=== PATIENT | female | born 1975 | race Caucasian/White ===

== ENCOUNTER 2017-08-10 09:24 | Emergency (ER) | payer OTHER ==
[2017-08-10 09:24] VITALS: BMI 25.4
[2017-08-10 09:28] VITALS: BP 103/66; PULSE 75; RESP 16; TEMP 98.1; O2SAT 100
[2017-08-10] MEDS ORDERED: Naproxen 500 MG TAB PO ONE ×2 (10:45→11:00)
--- NOTE | 2017-08-10 12:41 | ED PDOC ---
Lower Extremity Pain/Injury Time Seen by Provider: 08/10/17 10:28 Chief Complaint (Nursing): Lower Extremity Problem/Injury Chief Complaint (Provider): right foot pain History Per: Patient History/Exam Limitations: no limitations Onset/Duration Of Symptoms: Days (1 week) Additional Complaint(s): 41 year old female presents to the ED complaining of right foot pain onset 1 week ago. Denies falling, injury, deformity, swelling, or redness. Reports of localized pain, approximately about an area of fingertip on dorsal surface. Also states of going to the clinic and being diagnosed with diabetes but she not to followed-up. PMD: No family Provider Past Medical History Reviewed: Historical Data, Nursing Documentation, Vital Signs Vital Signs: Last Vital Signs Temp 98.1 F 08/10/17 09:27 Pulse 75 08/10/17 09:27 Resp 16 08/10/17 09:27 BP 103/66 08/10/17 09:27 Pulse Ox 100 08/10/17 09:27 - Medical History PMH: Diabetes (type 2) - Surgical History Surgical History: (x1) - Family History Family History: States: Unknown Family Hx - Social History Current smoker - smoking cessation education provided: No Alcohol: None Drugs: Denies - Home Medications Home Medications: Ambulatory Orders Medication Instructions Recorded Docusate [Colace] 100 mg PO BID #20 cap 08/05/15 Hard Fat/Phenylephrine [place] 1 sup RC DAILY #7 sup 08/05/15 [Anusol Suppository] Psyllium Husk [Metamucil] 0.52 gm PO DAILY #14 capsule 08/05/15 Naproxen [Naprosyn] 500 mg PO BID PRN #20 tablet 06/10/16 RX: Penicillin VK [Pen-Vee K] 500 mg PO QID #27 tab 06/10/16 Naproxen [Naprosyn] 500 mg PO BID #20 tab 08/10/17 - Allergies Allergies/Adverse Reactions: Allergies Allergy/AdvReac Type Severity Reaction Status Date / Time No Known Allergies Allergy Verified 08/05/15 17:15 Review of Systems ROS Statement: Except As Marked, All Systems Reviewed And Found Negative Musculoskeletal: Positive for: Foot Pain (right) Physical Exam - Reviewed Nursing Documentation Reviewed: Yes Vital Signs Reviewed: Yes - Physical Exam Extremity: Positive for: Normal ROM (good range on ankle, foot, knee), Tenderness (fingertip area focal tenderness; medial aspect dorsal pedas). Negative for: Pedal Edema, Deformity, Swelling (redness) Neurologic/Psych: Positive for: Alert, Oriented (x3), Gait (steady) - ECG O2 Sat by Pulse Oximetry: 100 (RA) Pulse Ox Interpretation: Normal - Radiology X-Ray: Viewed By Me X-Ray Interpretation: No Acute Disease - Progress Re-evaluation Time: 12:30 Condition: Re-examined Medical Decision Making Medical Decision Making: Time: 1043 Initial Impression: Right foot pain r/o fracture Initial Plan: -- Test --ED urine dipstick --Glucose, POC --Naproxen 500mg --Accucheck --Right Foot 3 Views [RAD] --Reevaluation Scribe Attestation: Documented by Rd Amaro, acting as a scribe for Radha Grimaldo MD Provider Scribe Attestation: All medical record entries made by the Scribe were at my direction and personally dictated by me. I have reviewed the chart and agree that the record accurately reflects my personal performance of the history, physical exam, medical decision making, and the department course for this patient. I have also personally directed, reviewed, and agree with the discharge instructions and disposition. Disposition - Clinical Impression Clinical Impression: Foot pain, right - Patient ED Disposition Is Patient to be Admitted: No Doctor Will See Patient In The: Office Counseled Patient/Family Regarding: Diagnosis, Need For Followup, Rx Given - Disposition Referrals: [facility] [Outside] [facility] [Outside] Disposition: Routine/Home Disposition Time: 12:35 Condition: STABLE Prescriptions: Naproxen [Naprosyn] 500 mg PO BID #20 tab Instructions: Metatarsalgia (DC) Forms: [employer] ([place] Korean) Print Language: CITIZEN OF [place] - POA Present On Arrival: None
--- NOTE | 2017-08-10 15:35 | RAD ---
PROCEDURE: Right foot dated 08/10/2017 Three views of the right foot performed HISTORY: Focal pain - midfoot dorsum COMPARISON: None. FINDINGS: BONES: No evidence of acute displaced fracture nor dislocation. Osseous structures appear intact. No obvious cortical destructive changes. Small to medium-sized plantar surface calcaneal enthesophyte. JOINTS: No significant osteoarthritis SOFT TISSUES: Soft tissues appear grossly unremarkable OTHER FINDINGS: None. IMPRESSION: No evidence of acute displaced fracture nor dislocation. The small to medium-sized plantar surface calcaneal enthesophyte. If symptoms persist or worsen recommend followup radiographs in 5 -10 days as most fractures should become radiographically evident this timeframe. Alternatively, consider followup MRI.
== END 2017-08-10 13:27 | disposition home or self-care (01) ==
LOC: H.ER 09:24
DX: M79.671 Pain in right foot (principal); E11.65 Type 2 diabetes mellitus with hyperglycemia

== ENCOUNTER 2018-08-04 19:32 | Inpatient (IN) | payer MEDICAID, OTHER ==
[2018-08-04 19:32] VITALS: BMI 25.4
[2018-08-04] MEDS ORDERED: Sodium Chloride 0.9% 1,000 ML IV STA (20:15)
[2018-08-04 20:46] LABS: BASO # 0.1 K/uL (0.0-0.2); BASO % 0.8 % (0.0-2.0); EOS # 0.2 K/uL (0.0-0.7); HEMOGLOBIN 11.9 g/dL (12.0-16.0); LYMPH # 3.3 K/uL (1.0-4.3); MEAN CELL VOLUME 89.8 fl (81.0-99.0); MEAN CORPUSCULAR HGB CONC 33.4 g/dL (33.0-37.0); MEAN PLATELET VOLUME 8.6 fl (7.2-11.7); MONO # 0.6 K/uL (0.0-0.8); MONO % 8.7 % (0.0-10.0); NEUT # 2.7 K/uL (1.8-7.0); NEUT % 39.5 % (50.0-75.0); NRBC % 0.2 % (0.0-0.0); RBC 3.96 Mil/uL (3.80-5.20); RED CELL DISTRIBUTION WIDTH 12.7 % (11.5-14.5); WHITE BLOOD COUNT 6.8 K/uL (4.8-10.8)
[2018-08-04 20:50] LABS: SQUAMOUS EPITHIAL 3 /hpf (0-5); URINE BILIRUBIN NEGATIVE (NEGATIVE); URINE BLOOD NEGATIVE (NEGATIVE); URINE CLARITY SLIGHTY-CLOUDY (Clear); URINE COLOR YELLOW (YELLOW); URINE GLUCOSE (UA) NEG (NEGATIVE); URINE LEUKOCYTE ESTERASE NEG Leu/uL (Negative); URINE PROTEIN NEGATIVE (NEGATIVE); URINE UROBILINOGEN 0.2-1.0 mg/dL (0.2-1.0)
[2018-08-04 20:56] LABS: ALB/GLOB RATIO 1.3 (1.0-2.1); ALBUMIN 4.3 g/dL (3.5-5.0); ALT/SGPT 27 U/L (9-52); AST/SGOT 19 U/L (14-36); BLOOD UREA NITROGEN 19 mg/dl (7-17); CALCIUM 9.5 mg/dL (8.4-10.2); GFR NON-AFRICAN AMERICAN > 60; LIPASE 141 U/L (23-300)
--- NOTE | 2018-08-04 21:38 | ED PDOC ---
HPI: Abdomen Time Seen by Provider: 08/04/18 20:14 Chief Complaint (Nursing): Abdominal Pain Chief Complaint (Provider): Abdominal Pain History Per: Patient History/Exam Limitations: no limitations Onset/Duration Of Symptoms: Hrs (x3) Current Symptoms Are (Timing): Still Present Additional Complaint(s): 42 y/o female with a PMHx of DM presents to the ED for evaluation of abdominal pain associated with nausea and vomiting, onset three hours ago. Patient reports he is currently not taking any medications for DM. Patient notes pain is located in the RUQ radiating to the back and associated with 3 episodes of non-bloody, non-bilious vomiting and nausea. Otherwise, patient denies diarrhea. PMD: no provider Past Medical History Reviewed: Historical Data, Nursing Documentation, Vital Signs Vital Signs: Last Vital Signs Temp 99.0 F 08/04/18 19:42 Pulse 60 08/04/18 21:18 Resp 18 08/04/18 21:18 BP 137/73 08/04/18 21:18 Pulse Ox 100 08/04/18 21:18 - Medical History PMH: Diabetes (type 2) - Surgical History Surgical History: (x1) - Family History Family History: States: Unknown Family Hx - Immunization History Hx Tetanus Toxoid Vaccination: No Hx Influenza Vaccination: No Hx Pneumococcal Vaccination: No - Home Medications Home Medications: Ambulatory Orders Medication Instructions Recorded No Known Home Med 08/05/18 - Allergies Allergies/Adverse Reactions: Allergies Allergy/AdvReac Type Severity Reaction Status Date / Time No Known Allergies Allergy Verified 08/04/18 19:39 Review of Systems ROS Statement: Except As Marked, All Systems Reviewed And Found Negative Gastrointestinal: Positive for: Nausea, Vomiting, Abdominal Pain. Negative for: Diarrhea Physical Exam - Reviewed Nursing Documentation Reviewed: Yes Vital Signs Reviewed: Yes - Physical Exam Appears: Positive for: Uncomfortable Head Exam: Positive for: ATRAUMATIC, NORMOCEPHALIC Skin: Positive for: Normal Color, Warm, Dry Eye Exam: Positive for: Normal appearance, EOMI, PERRL Neck: Positive for: Normal, Painless ROM, Supple Cardiovascular/Chest: Positive for: Regular Rate, Rhythm. Negative for: Murmur Respiratory: Positive for: Normal Breath Sounds. Negative for: Respiratory Distress Gastrointestinal/Abdominal: Positive for: Tenderness (RUQ tenderness to palpation) Back: Positive for: Normal Inspection. Negative for: L CVA Tenderness, R CVA Tenderness Extremity: Positive for: Normal ROM. Negative for: Deformity Neurological/Psych: Positive for: Awake, Alert, Oriented. Negative for: Francheska r/Sensory Deficits - Laboratory Results Result Diagrams: 08/04/18 20:40 08/04/18 20:40 Lab Results: Total Bilirubin 0.2 mg/dl (0.2-1.3) 08/04/18 20:40 AST 19 U/L (14-36) 08/04/18 20:40 ALT 27 U/L (9-52) 08/04/18 20:40 Alkaline Phosphatase 84 U/L (38-126) 08/04/18 20:40 Total Protein 7.7 G/DL (6.3-8.2) 08/04/18 20:40 Albumin 4.3 g/dL (3.5-5.0) 08/04/18 20:40 Globulin 3.4 gm/dL (2.2-3.9) 08/04/18 20:40 Albumin/Globulin Ratio 1.3 (1.0-2.1) 08/04/18 20:40 Lipase 141 U/L (23-300) 08/04/18 20:40 Urine Color Yellow (YELLOW) 08/04/18 20:40 Urine Clarity Slighty-cloudy (Clear) 08/04/18 20:40 Urine pH 6.0 (5.0-8.0) 08/04/18 20:40 Ur Specific [place] 1.025 (1.003-1.030) 08/04/18 20:40 Urine Protein Negative mg/dL (NEGATIVE) 08/04/18 20:40 Urine Glucose (UA) Neg mg/dL (NEGATIVE) 08/04/18 20:40 Urine Ketones Negative mg/dL (NEGATIVE) 08/04/18 20:40 Urine Blood Negative (NEGATIVE) 08/04/18 20:40 Urine Nitrate Negative (NEGATIVE) 08/04/18 20:40 Urine Bilirubin Negative (NEGATIVE) 08/04/18 20:40 Urine Urobilinogen 0.2-1.0 mg/dL (0.2-1.0) 08/04/18 20:40 Ur Leukocyte Esterase Neg [place]/uL (Negative) 08/04/18 20:40 Urine RBC (Auto) 1 /hpf (0-3) 08/04/18 20:40 Urine Microscopic WBC < 1 /hpf (0-5) 08/04/18 20:40 Ur Squamous Epith Cells 3 /hpf (0-5) 08/04/18 20:40 - ECG O2 Sat by Pulse Oximetry: 100 (RA) Pulse Ox Interpretation: Normal Medical Decision Making Medical Decision Making: Time: 2014 Impression: 42 y/o female presenting with biliary colic Plan: -- CMP -- Lipase -- ED Urine -- ED Urine Dipstick -- ED Urine Dipstick -- CBC with Differentials -- Sodium Chloride IV 1000 mls/hr -- Toradol 30 mg IV -- Zofran Inj 4 mg IV -- Urinalysis -- US Gall Bladder 23:33 US Findings Liver Measures 14.3 cm in length. Normal echogenicity of the liver parenchyma. No mass. No intrahepatic bile duct dilatation. Gallbladder Multiple stones, 1 small at the neck possibly lodged measuring 1 x 0.9 cm, the largest stone measures 1.6 x 2.1 x 1.4 cm. Sludge. Common bile duct Measures 4.1 mm. No stones. No dilatation. Pancreas Unremarkable as visualized. No mass. No ductal dilatation. Right kidney Measures 11 x 4.3 x 4.7 cm in length. Normal echogenicity. No calculus, mass, or hydronephrosis. Aorta No aneurysmal dilatation. Measures 1.3 x 1.3 x 0.8 cm. Other Findings None. Impression 1. Multiple gallstones as described above. 2. Gallbladder sludge. 3. Consider follow up with hepatobiliary scan. 00:52 Patient is complaining of persistent pain. Given the significant number of stones in the US discussed patient case with surgical asst, Dr. Ramirez. Patient will be admitted. Diagnosis is Cholelithiasis . Scribe Attestation: Documented by Duc Lambert, acting as a scribe Cyn Ngo MD. Provider Scribe Attestation: All medical record entries made by the Scribe were at my direction and personally dictated by me. I have reviewed the chart and agree that the record accurately reflects my personal performance of the history, physical exam, medical decision making, and the department course for this patient. I have also personally directed, reviewed, and agree with the discharge instructions and disposition. Disposition - Patient ED Disposition Is Patient to be Admitted: Yes - Disposition Disposition Time: 00:52 Forms: [employer] (Yoruba)
[2018-08-05] MEDS: Lactated Ringer's 1,000 ML IV SCH ×2 (01:44→10:02)
--- NOTE | 2018-08-05 06:31 | CP.PCM.HP ---
History of Present Illness - History of Present Illness History of Present Illness: GENERAL SURGERY HISTORY AND PHYSICAL FOR DR. CARDENAS 42yo F with PMHx of DM presents to the ED with abdominal pain and vomiting. The pain began 2 hours prior to arrival and is located in the RUQ. She had associated nausea and vomited twice. Denies diarrhea. Reports that she has never had this type of pain before. Pt states that she did not eat any meal prior to the onset of pain. PMHx: DM (not on medication) Surgeries: Allergies: none Medications: none Social hx: denies etoh, tobacco abuse or illicit drug use Present on Admission - Present on Admission Any Indicators Present on Admission: No Review of Systems - Review of Systems All systems: reviewed and no additional remarkable complaints except (as per HPI) Past Patient History - Past Medical History & Family History Past Medical History?: Yes - Past Social History Smoking Status: Never Smoked - CARDIAC Hx Cardiac Disorders: No - PULMONARY Hx Respiratory Disorders: No - NEUROLOGICAL Hx Neurological Disorder: No - HEENT Hx HEENT Problems: No - RENAL Hx Chronic Kidney Disease: No - ENDOCRINE/METABOLIC Hx Diabetes Mellitus Type 2: Yes - HEMATOLOGICAL/ONCOLOGICAL Hx Blood Disorders: No - INTEGUMENTARY Hx Dermatological Problems: No - MUSCULOSKELETAL/RHEUMATOLOGICAL Hx Musculoskeletal Disorders: No Hx Falls: No - GASTROINTESTINAL Hx Gastrointestinal Disorders: Yes Other/Comment: cholelithiasis - GENITOURINARY/GYNECOLOGICAL Hx Genitourinary Disorders: No - PSYCHIATRIC Hx Psychophysiologic Disorder: No Hx Substance Use: No - SURGICAL HISTORY Hx Surgeries: Yes Hx Section: Yes (x1) - ANESTHESIA Hx Anesthesia: Yes Hx Anesthesia Reactions: No Meds Allergies/Adverse Reactions: Allergies Allergy/AdvReac Type Severity Reaction Status Date / Time No Known Allergies Allergy Verified 08/04/18 19:39 Physical Exam - Constitutional Appears: Well, Non-toxic, No Acute Distress - Head Exam Head Exam: ATRAUMATIC, NORMAL INSPECTION - Eye Exam Eye Exam: EOMI, Normal appearance - Respiratory Exam Respiratory Exam: NORMAL BREATHING PATTERN. absent: Respiratory Distress - Cardiovascular Exam Cardiovascular Exam: +S1, +S2 - GI/Abdominal Exam GI & Abdominal Exam: Soft, Tenderness (tender in RUQ). absent: Distended, Firm, Guarding, Rebound, Rigid Additional comments: + Armas sign - Neurological Exam Neurological exam: Alert, CN II-XII Intact, Oriented x3 - Psychiatric Exam Psychiatric exam: Normal Affect, Normal Mood - Skin Skin Exam: Dry, Normal Color, Warm Results - Vital Signs Recent Vital Signs: Last Vital Signs Temp 98.4 F 08/05/18 02:25 Pulse 62 08/05/18 01:55 Resp 18 08/05/18 03:39 BP 107/61 08/05/18 02:25 Pulse Ox 98 08/05/18 03:39 - Labs Result Diagrams: 08/04/18 20:40 08/04/18 20:40 Labs: Laboratory Results - last 24 hr 08/04/18 08/04/18 08/04/18 20:40 20:40 20:40 WBC 6.8 RBC 3.96 Hgb 11.9 L Hct 35.5 MCV 89.8 MCH 30.0 MCHC 33.4 RDW 12.7 Plt Count 317 MPV 8.6 Neut % (Auto) 39.5 L Lymph % (Auto) 48.0 H [place] % (Auto) 8.7 Eos % (Auto) 3.0 Baso % (Auto) 0.8 Neut # (Auto) 2.7 Lymph # (Auto) 3.3 [place] # (Auto) 0.6 Eos # (Auto) 0.2 Baso # (Auto) 0.1 Sodium 141 Potassium 3.4 L Chloride 98 Carbon Dioxide 29 Anion Gap 17 BUN 19 H Creatinine 0.5 L Est GFR ( Amer) > 60 Est GFR (Non-Af Amer) > 60 Random Glucose 182 H Calcium 9.5 Total Bilirubin 0.2 AST 19 ALT 27 Alkaline Phosphatase 84 Total Protein 7.7 Albumin 4.3 Globulin 3.4 Albumin/Globulin Ratio 1.3 Lipase 141 Urine Color Yellow Urine Clarity Slighty-cloudy Urine pH 6.0 Ur Specific [place] 1.025 Urine Protein Negative Urine Glucose (UA) Neg Urine Ketones Negative Urine Blood Negative Urine Nitrate Negative Urine Bilirubin Negative Urine Urobilinogen 0.2-1.0 Ur Leukocyte Esterase Neg Urine RBC (Auto) 1 Urine Microscopic WBC < 1 Ur Squamous Epith Cells 3 Assessment & Plan - Assessment and Plan (Free Text) Assessment: 42yo F with PMHx of DM presents to the ED with abdominal pain and vomiting and found to have cholelithiasis, biliary colic - Afebrile, VSS - No leukocytosis, bilirubin, LFTs, lipase all WNL - US: multiple stones, 1 small stone at neck possibly lodged 1x0.9cm, largest stone 1.6x2.1x1.4cm, sludge, CBD 4.1mm - + Armas sign, tender in RUQ - NPO - IV fluids - Plan for laparoscopic cholecystectomy today - Discussed plan with Dr. Ethan Ramirez PGY-4
[2018-08-05 07:35] LABS: PROTHROMBIN TIME 11.2 Seconds (9.8-13.1)
[2018-08-05 07:38] LABS: PARTIAL THROMBOPLASTIN TIME 28.6 Seconds (25.6-37.1)
[2018-08-05] MEDS ORDERED: Succinylcholine 200 mg/10 ml Inj IV ONE (09:56)
[2018-08-05] MEDS ORDERED: Propofol 10 mg/ml Inj (20 ML) ONE (09:56)
[2018-08-05] MEDS ORDERED: Rocuronium 10 mg/ml (5 ml) ONE (09:56)
[2018-08-05] MEDS ORDERED: Midazolam 2 MG/2 ML VIAL ONE (09:56)
[2018-08-05] MEDS ORDERED: Lidocaine 4% (Laryng-O-Jet) Kit MM ONE (09:56)
[2018-08-05] MEDS ORDERED: ceFAZolin 2 GM in Sodium Chloride 0.9% 100 ML IVPB ONE (10:01)
[2018-08-05] MEDS ORDERED: ePHEDrine 50 mg/ml Inj ONE (10:12)
--- NOTE | 2018-08-05 10:21 | US ---
Date of service: 08/04/2018 HISTORY: RUQ pain COMPARISON: None. TECHNIQUE: Sonographic evaluation of the right upper quadrant of the abdomen. FINDINGS: LIVER: Measures 14.3 cm in length. Normal echogenicity of the liver parenchyma. No mass. No intrahepatic bile duct dilatation. GALLBLADDER: There are multiple gallstones, an approximately 10 mm stone is likely impacted in the neck of the gallbladder. No wall thickening, pericholecystic fluid or positive sonographic Armas's sign. COMMON BILE DUCT: Measures 4.1 mm. No stones. No dilatation. PANCREAS: Unremarkable as visualized. No mass. No ductal dilatation. RIGHT KIDNEY: Measures 11.0 cm in length. Normal echogenicity. No calculus, mass, or hydronephrosis. AORTA: No aneurysmal dilatation. IVC: Unremarkable. OTHER FINDINGS: None . IMPRESSION: Cholelithiasis and presumable 10 mm impacted gallstone in the neck of the gallbladder. No biliary dilatation. A preliminary report was provided by [employer].
[2018-08-05] MEDS ORDERED: Dexamethasone 4 mg/1 ml ONE (10:50)
[2018-08-05] MEDS ORDERED: Neostigmine 1:1000 (1 mg/ml) Inj ONE (10:50)
[2018-08-05] MEDS ORDERED: Lactated Ringer's 1,000 ML IV ONE (11:19)
[2018-08-05] MEDS ORDERED: HYDROmorphone 0.5 mg/0.5 ml ISec IVP PRN (11:21)
[2018-08-05] MEDS ORDERED: Lactated Ringer's 1,000 ML IV SCH (11:30)
--- NOTE | 2018-08-05 12:09 | PCM.OP ---
Operative Report - Operative Report Date of Surgery/Procedure: 08/05/18 Time of Surgery/Procedure: 12:09 Surgeon: Dr. Long Radio Equipment Installer: Kendra [id number] Anesthesia/Sedation: General Endo Dr. Brewer Pre-Operative Diagnosis: biliary colic, cholelithiasis Post-Operative Diagnosis: acute cholecystitis Indication for Surgery: acute cholecystitis Operative Findings: acute cholecystitis Procedure/Operation Description: 42F who presents for Laparoscopic Cholecystectomy. Consent was obtained before the procedure. Risks/benefits were discussed at length with the patient. The patient verbalized understanding and agreement. Patient was taken to the operating room and placed in the supine position. SCDs Were applied to bilateral lower extremities. General endotracheal anesthesia was administered. The patients abdomen was prepped and draped in the usual sterile fashion. Timeout was performed. #11 blade was used to make infraumbilical incision. Verses needle puncture was performed at this incision. The abdomen was insufflated to the optimal 15 mmhg with CO2. 12 mm laparoscopic trocar was inserted through the infraumbilical incision. Under direct visualization, a second 12 mm was placed subxiphoid then two additional 5 mm port were beneath the right costal margin (one medial and one lateral). The gallbladder was visualized. It appeared chronically inflamed with mild distention. There was no presence of acute inflammation. The gallbladder fundus was grasp in elevated towards the right shoulder. The infundibulum was cleared of overlying fatty tissue invitations then grasp and retracted laterally. The cystic duct was identified and dissected bluntly. The cystic duct was cleared towards the junction of the CBD as well as near its insertion to the gallbladder. The cystic artery was then identify and bluntly dissected. The critical view of safety was achieved. Three Clips were placed on the cystic duct and then it was divided with Endo Ayah. The cystic artery was also clipped in the same fashion then was divided as well. A posterior branch of the cystic artery was then en countered which was always clipped three times before being divided. The gallbladder was dissected off the liver bed using electrocautery. The liver bed was inspected for hemostasis before the dissection was completed. The gallbladder was completely removed from the liver bed and placed in a specimen retrieval bag before being removed from the infraumbilical port site. The right upper quadrant was irrigated and section. There was no evidence of bile or bleeding. The pneumoperitoneum was released and all the trocars were removed. The umbilical port site was then closed at the fascial layer with a figure of eight using 0 Vicryl on UR6 needle. All incisions were closed with subcuticular 4-0 Monocryl sutures. Dermabond was applied as dressing. All nursing counts were correct and confirmed. Patient tolerated the procedure well with no pain complications. The patient was transferred to the PACU for recovery. Estimated blood loss was 10 mL. Patient stable for discharge when tolerating diet and pain controlled. Estimated Blood Loss: 10 mL Complications: None Discharge & Condition: Good, patient may be discharged home later today if tolerating regular diet and pain is controlled
--- NOTE | 2018-08-05 12:09 | PCM.SURG1 ---
Surgeon's Initial Post Op Note - Surgeon's Notes Surgeon: Dr. Long Delicatessen Manager: Kendra PGY2 Type of Anesthesia: General Endo Anesthesia Administered By: Dr. Brewer Pre-Operative Diagnosis: Acute cholecystitis Operative Findings: Acute cholecystitis Post-Operative Diagnosis: Acute cholecystitis Operation Performed: Laparoscopic Cholecystectomy Specimen/Specimens Removed: Gallbladder Estimated Blood Loss: EBL {In ML}: 10 Blood Products Given: N/A Drains Used: No Drains Post-Op Condition: Good Date of Surgery/Procedure: 08/05/18 Time of Surgery/Procedure: 12:14
[2018-08-05] MEDS ORDERED: oxyCODONE 5 mg Immediate Release Tab PO PRN (12:10)
[2018-08-05 16:06] VITALS: BP 100/60; PULSE 73; RESP 18; TEMP 98.2; O2SAT 96
--- NOTE | 2018-08-05 17:18 | CP.PCM.DIS ---
Provider - Provider Date of Admission: 08/05/18 00:28 Attending physician: Sharona Long MD Time Spent in preparation of Discharge (in minutes): 40 Diagnosis - Discharge Diagnosis (1) Cholecystitis Status: Acute (2) S/P laparoscopic cholecystectomy Status: Acute Hospital Course - Lab Results Lab Results: Most Recent Lab Values WBC 6.8 K/uL (4.8-10.8) 08/04/18 20:40 RBC 3.96 Mil/uL (3.80-5.20) 08/04/18 20:40 Hgb 11.9 g/dL (12.0-16.0) L 08/04/18 20:40 Hct 35.5 % (34.0-47.0) 08/04/18 20:40 MCV 89.8 fl (81.0-99.0) 08/04/18 20:40 MCH 30.0 pg (27.0-31.0) 08/04/18 20:40 MCHC 33.4 g/dL (33.0-37.0) 08/04/18 20:40 RDW 12.7 % (11.5-14.5) 08/04/18 20:40 Plt Count 317 K/uL (130-400) 08/04/18 20:40 MPV 8.6 fl (7.2-11.7) 08/04/18 20:40 Neut % (Auto) 39.5 % (50.0-75.0) L 08/04/18 20:40 Lymph % (Auto) 48.0 % (20.0-40.0) H 08/04/18 20:40 Izard % (Auto) 8.7 % (0.0-10.0) 08/04/18 20:40 Eos % (Auto) 3.0 % (0.0-4.0) 08/04/18 20:40 Baso % (Auto) 0.8 % (0.0-2.0) 08/04/18 20:40 Neut # (Auto) 2.7 K/uL (1.8-7.0) 08/04/18 20:40 Lymph # (Auto) 3.3 K/uL (1.0-4.3) 08/04/18 20:40 Izard # (Auto) 0.6 K/uL (0.0-0.8) 08/04/18 20:40 Eos # (Auto) 0.2 K/uL (0.0-0.7) 08/04/18 20:40 Baso # (Auto) 0.1 K/uL (0.0-0.2) 08/04/18 20:40 PT 11.2 Seconds (9.8-13.1) 08/05/18 06:00 INR 1.0 08/05/18 06:00 APTT 28.6 Seconds (25.6-37.1) 08/05/18 06:00 Sodium 141 mmol/l (132-148) 08/04/18 20:40 Potassium 3.4 MMOL/L (3.6-5.0) L 08/04/18 20:40 Chloride 98 mmol/L (98-107) 08/04/18 20:40 Carbon Dioxide 29 mmol/L (22-30) 08/04/18 20:40 Anion Gap 17 (10-20) 08/04/18 20:40 BUN 19 mg/dl (7-17) H 08/04/18 20:40 Creatinine 0.5 mg/dl (0.7-1.2) L 08/04/18 20:40 Est GFR ( Amer) > 60 08/04/18 20:40 Est GFR (Non-Af Amer) > 60 08/04/18 20:40 POC Glucose (mg/dL) 288 mg/dL (65-110) H 08/05/18 16:53 Random Glucose 182 mg/dL (65-105) H 08/04/18 20:40 Calcium 9.5 mg/dL (8.4-10.2) 08/04/18 20:40 Total Bilirubin 0.2 mg/dl (0.2-1.3) 08/04/18 20:40 AST 19 U/L (14-36) 08/04/18 20:40 ALT 27 U/L (9-52) 08/04/18 20:40 Alkaline Phosphatase 84 U/L (38-126) 08/04/18 20:40 Total Protein 7.7 G/DL (6.3-8.2) 08/04/18 20:40 Albumin 4.3 g/dL (3.5-5.0) 08/04/18 20:40 Globulin 3.4 gm/dL (2.2-3.9) 08/04/18 20:40 Albumin/Globulin Ratio 1.3 (1.0-2.1) 08/04/18 20:40 Lipase 141 U/L (23-300) 08/04/18 20:40 Urine Color Yellow (YELLOW) 08/04/18 20:40 Urine Clarity Slighty-cloudy (Clear) 08/04/18 20:40 Urine pH 6.0 (5.0-8.0) 08/04/18 20:40 Ur Specific Marion 1.025 (1.003-1.030) 08/04/18 20:40 Urine Protein Negative mg/dL (NEGATIVE) 08/04/18 20:40 Urine Glucose (UA) Neg mg/dL (NEGATIVE) 08/04/18 20:40 Urine Ketones Negative mg/dL (NEGATIVE) 08/04/18 20:40 Urine Blood Negative (NEGATIVE) 08/04/18 20:40 Urine Nitrate Negative (NEGATIVE) 08/04/18 20:40 Urine Bilirubin Negative (NEGATIVE) 08/04/18 20:40 Urine Urobilinogen 0.2-1.0 mg/dL (0.2-1.0) 08/04/18 20:40 Ur Leukocyte Esterase Neg Moris/uL (Negative) 08/04/18 20:40 Urine RBC (Auto) 1 /hpf (0-3) 08/04/18 20:40 Urine Microscopic WBC < 1 /hpf (0-5) 08/04/18 20:40 Ur Squamous Epith Cells 3 /hpf (0-5) 08/04/18 20:40 - Hospital Course Hospital Course: 42 F with PMHx of DM presents to the ED with abdominal pain and vomiting. The pain began 2 hours prior to arrival and is located in the RUQ. She had associated nausea and vomited twice. Denies diarrhea. Reports that she has never had this type of pain before. Pt states that she did not eat any meal prior to the onset of pain. Patient was admitted for biliary colic. Patient pain worsened so she was taken to OR for laparoscopic cholecystectomy on 08/05. Patient tolerated the procedure well with no apparent complications. After the procedure, patient's pain was controlled, she was tolerating diet and ambulating. She was deemed medically stable for discharge by Dr. Long. Patient instructed to follow up as outpatient within 1 week. (This is a summary of the hospital course. Please refer to EMR for more details.) - Date & Time of H&P Date of H&P: 08/05/18 Time of H&P: 04:35 Discharge Exam - Head Exam Head Exam: ATRAUMATIC, NORMAL INSPECTION, NORMOCEPHALIC - Eye Exam Eye Exam: EOMI, Normal appearance Pupil Exam: PERRL - ENT Exam ENT Exam: Mucous Membranes Moist - Respiratory Exam Respiratory Exam: NORMAL BREATHING PATTERN - Cardiovascular Exam Cardiovascular Exam: REGULAR RHYTHM - GI/Abdominal Exam GI & Abdominal Exam: Normal Bowel Sounds, Soft, Tenderness (mild at surgical sites). absent: Distended, Firm, Guarding, Hernia, Rebound, Rigid - Back Exam Back exam: absent: CVA tenderness (L), CVA tenderness (R) - Neurological Exam Neurological exam: Alert, CN II-XII Intact, Normal Gait, Oriented x3 - Psychiatric Exam Psychiatric exam: Normal Affect, Normal Mood - Skin Skin Exam: Dry, Intact, Normal Color, Warm Discharge Plan - Follow Up Plan Condition: GOOD Disposition: HOME/ ROUTINE Instructions: Cholecystectomy, Laparoscopic Surgery, Gallstones (DC) Additional Instructions: No heavy lifting for 4 weeks May shower Keep area clean and dry No diet restrictions Follow up with Dr. Long in [address] Long's office for any issues No levantar objetos pesados ??kyara 4 semanas Puede ducharse Mantenga el angelina limpia y seca No hay restricciones en la dieta. Seguimiento con el Dr. Long en 1 semana. Llame a la oficina del Dr. Long para cualquier problema. Referrals: [facility] [Outside] Sharona Long MD [Staff Provider] -
== END 2018-08-05 19:52 | disposition home or self-care (01) | DRG 263 ==
LOC: H.ER 19:32 → H.ERHOLD 08-05 00:28 → H.MEDSURG1 08-05 02:24
PROVIDERS: ADMIT Specialist; ATTEND Specialist
PROC: 0FT44ZZ Resection of Gallbladder, Percutaneous Endoscopic Approach (ICD-10-PCS; principal; 2018-08-05 09:30)
DX: K80.00 Calculus of gallbladder with acute cholecystitis without obstruction (principal); E11.9 Type 2 diabetes mellitus without complications; K82.8 Other specified diseases of gallbladder